=== PATIENT | female | born 1930 | race Caucasian/White ===

== ENCOUNTER 2017-02-26 10:00 | Outpatient (RCR) | payer MEDICARE, OTHER ==
[~2017-02-26 10:00] MED LIST: ASA81 MG PO; BENTYL10 MG PO; ESTRACE42.5 GM TOP; FLAX OIL1000 MG PO; MULTI-DAY VITA1 EACH PO; MULTI-VITAMIN1 EACH PO; MYRBETRIQ50 MG PO; NITROFURANTOIN100 MG PO; OYSTER SHELL C1 EACH PO; SOTALOL80 MG PO; ULTRACET TABLE1 EACH PO; Z.0.CALCIUM600 MG PO; Z.0.LOPRESSOR25 MG PO; [UNRECOGNIZED DRUG - OTHER] PO; eliquis PO
== END 2017-03-25 ==
LOC: PT 10:00
PROVIDERS: ATTEND Internal Medicine
DX: M62.81 Muscle weakness (generalized) (principal)

== ENCOUNTER 2017-04-06 14:29 | Emergency (ER) | payer MEDICARE, OTHER ==
[~2017-04-06] VITALS: Ht 160 cm; Wt 38.6 kg
[2017-04-06] MEDS ORDERED: LIDOCAINE HCL 2% 100 MG/5 ML IV ONE (15:13)
--- NOTE | 2017-04-06 15:25 | Diagnostic Imaging Report ---
Examination: CT BRAIN WITHOUT CONTRAST History:Fall. Head injury. Comparison studies:Head CT performed June 11, 2013 Technique: Axial images were obtained from the skull base to the vertex. Coronal and sagittal images reconstructed from the axial data. Intravenous contrast: None Findings: Scalp: Small right parietal scalp hematoma. Bones: No fractures, blastic or lytic lesions. Brain sulci: Appropriate for age. Ventricles: Normal in size and configuration. No hydrocephalus. Extra-axial space: There is hemorrhage in the prepontine and premedullary cisterns. In the left frontoparietal convexity, there is a 2 mm acute subdural hematoma. No associated midline shift, herniation or regional mass effect. Parenchyma: There is a parenchymal hematoma in the posterior aspect of the inferior right temporal gyrus, measuring 0.7 x 1.7 x 0.9 cm (superoinferior x anteroposterior x transverse dimensions). No associated midline shift or herniation. There is a new cortical-based area of encephalomalacia involving the right middle and inferior frontal gyri from prior vascular insult. There are mild patchy areas of hypoattenuation in the periventricular and subcortical white matter, nonspecific. No masses or acute cortical based vascular insults. Sellar/suprasellar region: No abnormalities. Craniocervical junction: Patent foramen magnum. No Chiari one malformation. Incidental findings: Atherosclerotic calcification of the cavernous and supraclinoid internal carotid and V4 segments of the bilateral vertebral arteries. Impression: 1. Several new areas of posttraumatic hemorrhage in this patient on anticoagulation, when compared to prior examination performed June 01, 2013 and which includes left temporal parenchymal contusion, left frontoparietal convexity subdural hematoma, and prepontine and premedullary cisterns subarachnoid hemorrhage. 2. No associated midline shift or herniation. 3. New small right parietal scalp hematoma. 4. 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 Acute findings discussed with Dr. Levi on 04/06/2017 at 1517 hours. Signed by: Dr. Sierra Leyva M.D. on 04/06/2017 3:21 PM
--- NOTE | 2017-04-06 15:28 | Diagnostic Imaging Report ---
Examination: CT CERVICAL SPINE WITHOUT CONTRAST HISTORY:Fall. Neck pain. COMPARISON:None. TECHNIQUE: Multidetector helical axial images were obtained without contrast from the foramen magnum to T1. Coronal and sagittal reformatted images were done. Bone and soft tissue windows were evaluated. FINDINGS: Alignment:Normal alignment and lordosis. Vertebrae: Normal height and density. No acute fracture, infection or neoplasm. Disc space heights: Normal height. Caliber of spinal canal: Developmentally normal. Posterior fossa and craniocervical junction: Foramen magnum patent. No Chiari 1 malformation. Soft tissues: Atherosclerotic calcification of the bilateral common carotid arteries. Degenerative changes: Mild bilateral facet arthropathy at C2-C3 with mild right foraminal narrowing. No left foraminal or canal stenosis. Moderate bilateral facet and mild bilateral uncovertebral arthropathy at C3-C4 result in moderate right neural foraminal narrowing. No left foraminal or canal stenosis. Diffuse disc osteophyte complex at C5-C6 and bilateral uncovertebral arthropathy result in severe bilateral neural foraminal narrowing. No canal stenosis. The remainder of the cervical levels demonstrate no disc bulge/ herniation or foraminal or canal stenosis. IMPRESSION: 1. No acute abnormalities. 2. Degenerative changes, as described above. Signed by: Dr. Sierra Leyva M.D. on 04/06/2017 3:24 PM
[2017-04-06] MEDS ORDERED: NICARDIPINE 20MG/200ML PREMIX 200 ML ONE (15:31)
[2017-04-06] MEDS ORDERED: CEFAZOLIN SOD 1 GM VIAL ONE (15:37)
[2017-04-06] MEDS ORDERED: MIDAZOLAM HCL IV PRN (15:45)
[2017-04-06] MEDS ORDERED: DEXTROSE 5% IV PRN (15:45)
[2017-04-06] MEDS ORDERED: MIDAZOLAM HCL 25 MG in SODIUM CHLORIDE 0.9% 45 ML IV PRN (15:45)
[2017-04-06] MEDS ORDERED: SODIUM CHLORIDE 0.9% 1000ML 1,000 ML ONE (15:46)
[2017-04-06 15:47] LABS: BASOPHILS # (AUTO) 0.1 (0.0-0.1); BASOPHILS % 0.5 % (0.0-1.0); EOSINOPHILS # (AUTO) 0.1 (0.0-0.4); EOSINOPHILS % 1.1 % (0.0-6.0); HEMOGLOBIN 14.1 g/dL (12.0-16.0); LYMPHOCYTES # (AUTO) 2.3 (1.0-3.2); LYMPHOCYTES % 20.6 % (18.0-39.1); MEAN CORPUSCULAR HEMOGLOBIN 33.4 pg (28-32); MEAN CORPUSCULAR HGB CONC 33.6 g/dL (31-35); MEAN CORPUSCULAR VOLUME 99.5 fL (81-99); MONOCYTES # (AUTO) 0.7 (0.2-0.8); MONOCYTES % 6.5 % (4.4-11.3); NEUTROPHILS # (AUTO) 7.7 (2.1-6.9); PLATELET COUNT 249 x10e3/uL (140-360); RED BLOOD COUNT 4.22 x10e6/uL (3.6-5.1); RED CELL DISTRIBUTION WIDTH 13.6 % (11.7-14.4)
[2017-04-06 15:58] LABS: INR 0.93; PROTHROMBIN TIME 12.9 seconds (11.9-14.5)
[2017-04-06 15:59] LABS: PARTIAL THROMBOPLASTIN TIME 22.9 seconds (23.8-35.5)
[2017-04-06] MEDS ORDERED: LEVETIRACETAM 500MG/5ML VIAL 1,000 MG in SODIUM CHLORIDE 0.9% 100 ML 100 ML IV SCH (16:00)
[2017-04-06 16:06] LABS: ALANINE AMINOTRANSFERASE 21 IU/L (0-55); ALBUMIN 3.9 g/dL (3.5-5.0); ALBUMIN/GLOBULIN RATIO 0.9 (0.8-2.0); ALKALINE PHOSPHATASE 81 IU/L (40-150); ANION GAP 15.9 mmol/L (8-16); BLOOD UREA NITROGEN 10 mg/dL (7-26); BUN/CREATININE RATIO 15 (6-25); CALCIUM 9.9 mg/dL (8.4-10.2); CARBON DIOXIDE 25 mmol/L (22-29); CHLORIDE 105 mmol/L (98-107); CREATINE KINASE 88 IU/L (29-168); CREATININE, SERUM 0.67 mg/dL (0.57-1.11); EST GLOMERULAR FILTRATION RATE > 60 ML/MIN (60-); GLUCOSE 133 mg/dL (74-118); POTASSIUM 3.9 mmol/L (3.5-5.1); SODIUM 142 mmol/L (136-145)
[2017-04-06 16:12] LABS: TROPONIN I 0.605 ng/mL (0-0.300)
[2017-04-06] MEDS ORDERED: ETOMIDATE 2 MG/ML 10 ML INJ IV STA (17:42)
[2017-04-06] MEDS ORDERED: LIDOCAINE 1% 5ML-MPF INJ ONE (17:45)
[2017-04-06] MEDS ORDERED: MIDAZOLAM HCL 2 MG/2 ML VIAL IV ONE (18:00)
[2017-04-06] MEDS ORDERED: VECURONIUM BROMIDE FOR INJ 20 MG VIAL ONE (18:25)
[2017-04-06] MEDS ORDERED: ETOMIDATE 2 MG/ML 10 ML INJ IV ONE (18:25)
== END 2017-04-06 17:50 | disposition short-term general hospital (02) ==
LOC: ER 14:29
DX: S06.5X0A Traumatic subdural hemorrhage without loss of consciousness, initial encounter (principal); S01.01XA Laceration without foreign body of scalp, initial encounter; S09.8XXA Other specified injuries of head, initial encounter; W01.198A Fall on same level from slipping, tripping and stumbling with subsequent striking against other object, initial encounter; Y92.488 Other paved roadways as the place of occurrence of the external cause; I48.91 Unspecified atrial fibrillation
CPT/HCPCS: 31500; 36415; 70450; 72125; 80053; 82550; 82553; 84484; 85025; 85610; 85730; 94002; 99285; J0690; J2001; J2250; J7030

== ENCOUNTER → 2017-04-24 | Outpatient (CLI) | payer OTHER ==
[2017-04-24 15:48] LABS: BASOPHILS # (AUTO) 0.1 (0.0-0.1); BASOPHILS % 0.7 % (0.0-1.0); EOSINOPHILS # (AUTO) 0.4 (0.0-0.4); EOSINOPHILS % 4.9 % (0.0-6.0); HEMATOCRIT 32.5 % (34.2-44.1); HEMOGLOBIN 10.2 g/dL (12.0-16.0); LYMPHOCYTES # (AUTO) 1.9 (1.0-3.2); LYMPHOCYTES % 25.3 % (18.0-39.1); MEAN CORPUSCULAR HGB CONC 31.4 g/dL (31-35); MEAN CORPUSCULAR VOLUME 95.6 fL (81-99); MONOCYTES # (AUTO) 0.5 (0.2-0.8); MONOCYTES % 6.7 % (4.4-11.3); NEUTROPHILS # (AUTO) 4.7 (2.1-6.9); NEUTROPHILS % 61.5 % (38.7-80.0); PLATELET COUNT 371 x10e3/uL (140-360); RED CELL DISTRIBUTION WIDTH 13.7 % (11.7-14.4)
== END ==
LOC: NPA 11:30
DX: Z02.9 Encounter for administrative examinations, unspecified (principal)
CPT/HCPCS: 36415; 85025

== ENCOUNTER → 2017-05-14 | Outpatient (CLI) | payer OTHER ==
[~2017-05-14] MED LIST changes: +ASPIR 8181 MG PO
[2017-05-14 18:14] LABS: BASOPHILS % 0.3 % (0.0-1.0); EOSINOPHILS # (AUTO) 0.2 (0.0-0.4); EOSINOPHILS % 1.2 % (0.0-6.0); HEMATOCRIT 32.7 % (34.2-44.1); HEMOGLOBIN 10.3 g/dL (12.0-16.0); LYMPHOCYTES # (AUTO) 1.9 (1.0-3.2); LYMPHOCYTES % 14.8 % (18.0-39.1); MEAN CORPUSCULAR HEMOGLOBIN 27.1 pg (28-32); MEAN CORPUSCULAR HGB CONC 31.5 g/dL (31-35); MEAN CORPUSCULAR VOLUME 86.1 fL (81-99); MONOCYTES # (AUTO) 0.9 (0.2-0.8); MONOCYTES % 7.2 % (4.4-11.3); NEUTROPHILS # (AUTO) 9.6 (2.1-6.9); PLATELET COUNT 425 x10e3/uL (140-360); RED CELL DISTRIBUTION WIDTH 16.5 % (11.7-14.4)
[2017-05-14 18:16] LABS: ANION GAP 18.7 mmol/L (8-16); CALCIUM 11.1 mg/dL (8.4-10.2); CREATININE, SERUM 1.09 mg/dL (0.57-1.11); POTASSIUM 4.7 mmol/L (3.5-5.1)
== END ==
LOC: NPA 12:00
DX: Z02.89 Encounter for other administrative examinations (principal)
CPT/HCPCS: 36415; 80048; 85025

== ENCOUNTER 2017-05-20 16:29 | Inpatient (IN) | payer MEDICARE, OTHER ==
[~2017-05-20] VITALS: Ht 160 cm; Wt 33.1 kg
[~2017-05-20 16:29] MED LIST changes: -ASPIR 8181 MG PO
--- OUTSIDE RECORDS SUMMARY | 2017-05-20 16:33 | XMS REPORT ---
Author Author [facility] Address Unknown Phone Unavailable Care Team Providers Care Urology Surgeon Name Role Phone FABIO PEREZ Unavailable Unavailable Problems This patient has no known problems. Allergies, Adverse Reactions, Alerts This patient has no known allergies or adverse reactions. Medications This patient has no known medications. Results Test Description Test Time Test Comments Text Results Atomic Results Result Comments CT BRAIN WO [place] [address] Patient Name: LEVI BERNAL MR #: [id number] : 1930 Age/Sex: 86/F Req # : [id number] Adm Physician: Ordered by: FABIO PEREZ MD Report #: [id number] Location: ER Room/Bed: Procedure: [id number] CT/CT BRAIN WO Exam Date: Exam Time: REPORT STATUS: Signed Examination: CT BRAIN WITHOUT CONTRAST History: Fall. Head injury. Comparison studies:Head CT performed June 11, 2013 Technique: Axial images were obtained from the skull base to the vertex. Coronal and sagittal images reconstructed from the axial data. Intravenous contrast: None Findings: Scalp: Small right parietal scalp hematoma. Bones: No fractures, blastic or lytic lesions. Brain sulci: Appropriate for age. Ventricles: Normal in size and configuration. No hydrocephalus. Extra-axial space: There is hemorrhage in the prepontine and premedullary cisterns. In the left frontoparietal convexity, there is a 2 mm acute subdural hematoma. No associated midline shift, herniation or regional mass effect. Parenchyma: There is a parenchymal hematoma in the posterior aspect of the inferior right temporal gyrus, measuring 0.7 x 1.7 x 0.9 cm ( superoinferior x anteroposterior x transverse dimensions). No associated midline shift or herniation. There is a new cortical-based area of encephalomalacia involving the right middle and inferior frontal gyri from prior vascular insult. There are mild patchy areas of hypoattenuation in the periventricular and subcortical white matter, nonspecific. No masses or acute cortical based vascular insults. Sellar/suprasellar region: No abnormalities. Craniocervical junction: Patent foramen magnum. No Chiari one malformation. Incidental findings: Atherosclerotic calcification of the cavernous and supraclinoid internal carotid and V4 segments of the bilateral vertebral arteries. Impression: 1. Several new areas of posttraumatic hemorrhage in this patient on anticoagulation, when compared to prior examination performed June 01, 2013 and which includes left temporal parenchymal contusion, left frontoparietal convexity subdural hematoma, and prepontine and premedullary cisterns subarachnoid hemorrhage. 2. No associated midline shift or herniation. 3. New small right parietal scalp hematoma. 4. 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 Acute findings discussed with Dr. Perez on 04/06/2017 at 1517 hours. Signed by: Dr. Sierra Leyva M.D. on 04/06/2017 3:21 PM Dictated By: SIERRA HOLLIS MD 1521 Transcribed By: MAGY on 04/06/17 1521 COPY TO: FABIO PEREZ MD CT CERVICAL SPINE WO [place] [address] Patient Name: LEVI BERNAL MR #: [id number] : 1930 Age/Sex: 86/F Req #: [id number] Adm Physician: Ordered by: FABIO PEREZ MD Report #: [id number] Location: ER Room/Bed: Procedure: [id number] CT/CT CERVICAL SPINE WO Exam Date: Exam Time: REPORT STATUS: Signed Examination: CT CERVICAL SPINE WITHOUT CONTRAST HISTORY:Fall. Neck pain. COMPARISON:None. TECHNIQUE: Multidetector helical axial images were obtained without contrast from the foramen magnum to T1. Coronal and sagittal reformatted images were done. Bone and soft tissue windows were evaluated. FINDINGS: Alignment: Normal alignment and lordosis. Vertebrae: Normal height and density. No acute fracture, infection or neoplasm. Disc space heights: Normal height. Caliber of spinal canal: Developmentally normal. Posterior fossa and craniocervical junction: Foramen magnum patent. No Chiari 1 malformation. Soft tissues: Atherosclerotic calcification of the bilateral common carotid arteries. Degenerative changes: Mild bilateral facet arthropathy at C2- C3 with mild right foraminal narrowing. No left foraminal or canal stenosis. Moderate bilateral facet and mild bilateral uncovertebral arthropathy at C3- C4 result in moderate right neural foraminal narrowing. No left foraminal or canal stenosis. Diffuse disc osteophyte complex at C5-C6 and bilateral uncovertebral arthropathy result in severe bilateral neural foraminal narrowing. No canal stenosis. The remainder of the cervical levels demonstrate no disc bulge/ herniation or foraminal or canal stenosis. IMPRESSION: 1. No acute abnormalities. 2. Degenerative changes, as described above. Signed by: Dr. Sierra Leyav M.D. on 04/06/2017 3:24 PM Dictated By: SIERRA HOLLIS MD 1524 Transcribed By: MAGY on 1524 COPY TO: FABIO PEREZ MD
[2017-05-20] MEDS ORDERED: ACETAMINOPHEN 1000 MG/100 ML IV STA (16:35)
[2017-05-20] MEDS ORDERED: SODIUM CHLORIDE 0.9% 1000ML 1,000 ML IV STA (16:42)
--- NOTE | 2017-05-20 17:18 | Diagnostic Imaging Report ---
EXAMINATION: CHEST SINGLE (PORTABLE) 05/20/2017 4:33 PM COMPARISON: 02/06/2015 INDICATION: Weakness, lethargic DISCUSSION: LINES: None. LUNGS: The lungs are hyperexpanded. Calcified granuloma in the right upper lung is unchanged. Questionable airspace opacities in the right lung base PLEURA: No pleural effusion or pneumothorax. HEART AND MEDIASTINUM: Normal heart size. Calcifications of the thoracic aorta. BONES AND SOFT TISSUES: No acute osseous lesion. The soft tissues are normal. IMPRESSION: Questionable airspace opacities in the right lung base. Recommend dedicated PA and lateral chest radiographs for further evaluation. Guillermo Ortiz MD Signed by: Dr. Guillermo Ortiz M.D. on 05/20/2017 5:15 PM
[2017-05-20 17:41] LABS: BASOPHILS % 0.2 % (0.0-1.0); HEMATOCRIT 36.8 % (34.2-44.1); HEMOGLOBIN 12.5 g/dL (12.0-16.0); LYMPHOCYTES % 4.4 % (18.0-39.1); MEAN CORPUSCULAR HEMOGLOBIN 31.7 pg (28-32); MEAN CORPUSCULAR VOLUME 93.4 fL (81-99); MONOCYTES % 4.4 % (4.4-11.3); PLATELET COUNT 402 x10e3/uL (140-360); RED BLOOD COUNT 3.94 x10e6/uL (3.6-5.1); RED CELL DISTRIBUTION WIDTH 13.1 % (11.7-14.4)
[2017-05-20 17:46] LABS: INR 1.17
[2017-05-20 17:47] LABS: PARTIAL THROMBOPLASTIN TIME 28.2 seconds (23.8-35.5)
[2017-05-20] MEDS ORDERED: IPRATROPIUM BROMIDE 0.02% 2.5 ML NEB NEB STA (17:53)
[2017-05-20] MEDS ORDERED: CEFTRIAXONE SOD 1 GM VIAL IV STA (17:53)
[2017-05-20 17:57] LABS: ALANINE AMINOTRANSFERASE 11 IU/L (0-55); ALBUMIN 3.1 g/dL (3.5-5.0); ALBUMIN/GLOBULIN RATIO 0.7 (0.8-2.0); ALKALINE PHOSPHATASE 74 IU/L (40-150); BLOOD UREA NITROGEN 10 mg/dL (7-26); BUN/CREATININE RATIO 15 (6-25); CARBON DIOXIDE 24 mmol/L (22-29); CHLORIDE 99 mmol/L (98-107); CREATINE KINASE 9 IU/L (29-168); CREATININE, SERUM 0.66 mg/dL (0.57-1.11); EST GLOMERULAR FILTRATION RATE > 60 ML/MIN (60-); GLUCOSE 111 mg/dL (74-118); SODIUM 137 mmol/L (136-145)
[2017-05-20 17:59] LABS: CALCIUM 9.2 mg/dL (8.4-10.2)
[2017-05-20] MEDS ORDERED: AZITHROMYCIN 500MG/SOD CHL 0.9% 250ML BAG IV SCH (18:00)
[2017-05-20] MEDS: AZITHROMYCIN 500MG/NS 250 ML 250 ML IV SCH (18:12)
[2017-05-20] MEDS ORDERED: ALBUTEROL SULF 0.083% NEB SOLN 3 ML NEB NEB ONE (18:30)
[2017-05-20] MEDS: SODIUM CHLORIDE 0.9% 1000ML 1,000 ML IV SCH (18:51)
[2017-05-20] MEDS: IPRATROPIUM BROMIDE 0.02% 2.5 ML NEB NEB SCH ×2 (18:59→23:30)
[2017-05-20] MEDS: ALBUTEROL SULF 0.083% NEB SOLN 3 ML NEB NEB SCH ×2 (18:59→23:30)
[2017-05-20] MEDS ORDERED: POTASSIUM CHLORIDE 20MEQ/15ML UDC PO ONE (20:00)
[2017-05-20] MEDS ORDERED: SOTALOL80 MG PO (20:03)
[2017-05-20] MEDS ORDERED: MYRBETRIQ50 MG PO (20:03)
[2017-05-20] MEDS ORDERED: ASPIR 8181 MG PO (20:04)
[2017-05-20 20:30] VITALS: BP 101/54
[2017-05-21 01:06] VITALS: BP 140/67
[2017-05-21 02:07] LABS: CREATINE KINASE MB 0.4 ng/mL (0-5.0)
[2017-05-21] MEDS: ALBUTEROL SULF 0.083% NEB SOLN 3 ML NEB NEB SCH ×5 (03:00→20:15)
[2017-05-21] MEDS: SODIUM CHLORIDE 0.9% 1000ML 1,000 ML IV SCH ×2 (03:33→14:55)
[2017-05-21 05:42] VITALS: BP 147/91
[2017-05-21] MEDS: CEFTRIAXONE SOD 1 GM VIAL IV SCH (06:04)
[2017-05-21] MEDS: IPRATROPIUM BROMIDE 0.02% 2.5 ML NEB NEB SCH ×3 (07:29→20:15)
[2017-05-21 08:00] VITALS: BP 150/68
[2017-05-21] MEDS: MULTIVITAMINS/MINERALS TAB PO SCH (08:39)
[2017-05-21] MEDS: OYST-CAL-D 500MG TABLET PO SCH (08:39)
[2017-05-21] MEDS: SOTALOL HCL 80 MG TAB PO SCH ×2 (08:39→17:22)
[2017-05-21] MEDS: ASPIRIN 81 MG CHEW TAB PO SCH (08:39)
[2017-05-21 10:44] LABS: CREATINE KINASE MB 0.4 ng/mL (0-5.0)
[2017-05-21 16:00] VITALS: BP 106/59
[2017-05-21] MEDS: AZITHROMYCIN 500MG/NS 250 ML 250 ML IV SCH (17:22)
[2017-05-21 18:12] LABS: BILIRUBIN,URINE NEGATIVE (NEGATIVE); CLARITY,URINE SL CLOUDY (CLEAR); COLOR,URINE YELLOW (YELLOW); KETONES,URINE 1+ (NEGATIVE); LEUKOCYTE ESTERASE ,URINE TRACE (NEGATIVE); NITRITE,URINE NEGATIVE (NEGATIVE); PROTEIN,URINE DIPSTICK 1+ (NEGATIVE); URINE UROBILINOGEN 0.2 mg/dL (0.2 - 1)
[2017-05-21 18:17] LABS: BACTERIA,URINE RARE /HPF; EPITHELIAL CELLS,URINE RARE /LPF; MUCUS,URINE FEW (RARE); RBC,URINE 0-5 /HPF (0-5)
[2017-05-21 20:00] VITALS: BP 134/70
[2017-05-21] MEDS: NITROFURANTOIN MACROCRYSTALS 100 MG CAP PO SCH (22:14)
[2017-05-22] VITALS: BP 153/81
[2017-05-22] MEDS: IPRATROPIUM BROMIDE 0.02% 2.5 ML NEB NEB SCH ×4 (00:30→20:15)
[2017-05-22] MEDS: ALBUTEROL SULF 0.083% NEB SOLN 3 ML NEB NEB SCH ×6 (00:30→20:15)
[2017-05-22 04:00] VITALS: BP 138/63
[2017-05-22] MEDS: SODIUM CHLORIDE 0.9% 1000ML 1,000 ML IV SCH (04:09)
[2017-05-22] MEDS: CEFTRIAXONE SOD 1 GM VIAL IV SCH (05:24)
[2017-05-22 07:15] LABS: ALANINE AMINOTRANSFERASE 11 IU/L (0-55); ALBUMIN 2.4 g/dL (3.5-5.0); ALBUMIN/GLOBULIN RATIO 0.7 (0.8-2.0); ALKALINE PHOSPHATASE 73 IU/L (40-150); ANION GAP 11.1 mmol/L (8-16); BLOOD UREA NITROGEN 8 mg/dL (7-26); BUN/CREATININE RATIO 17 (6-25); CALCIUM 8.1 mg/dL (8.4-10.2); CARBON DIOXIDE 21 mmol/L (22-29); CHLORIDE 105 mmol/L (98-107); CREATININE, SERUM 0.46 mg/dL (0.57-1.11); EST GLOMERULAR FILTRATION RATE > 60 ML/MIN (60-); GLUCOSE 90 mg/dL (74-118); POTASSIUM 3.1 mmol/L (3.5-5.1); SODIUM 134 mmol/L (136-145)
[2017-05-22 07:30] LABS: MAGNESIUM 1.2 MG/DL (1.3-2.1)
[2017-05-22 08:00] VITALS: BP 169/81
[2017-05-22] MEDS: MEGACE 400MG/ 10ML CUP PO SCH (09:00)
[2017-05-22] MEDS: MULTIVITAMINS/MINERALS TAB PO SCH (09:00)
[2017-05-22] MEDS: ASPIRIN 81 MG CHEW TAB PO SCH (09:00)
[2017-05-22] MEDS: CITALOPRAM HYDROBROMIDE 20 MG TAB PO SCH (09:00)
[2017-05-22] MEDS: OYST-CAL-D 500MG TABLET PO SCH (09:00)
[2017-05-22] MEDS: SOTALOL HCL 80 MG TAB PO SCH ×2 (09:25→16:46)
[2017-05-22 12:00] VITALS: BP 153/86
[2017-05-22 16:00] VITALS: BP 175/89
[2017-05-22] MEDS: AZITHROMYCIN 500MG/NS 250 ML 250 ML IV SCH (17:40)
[2017-05-22 20:00] VITALS: BP 137/97
[2017-05-22] MEDS: NITROFURANTOIN MACROCRYSTALS 100 MG CAP PO SCH (20:32)
[2017-05-23] MEDS: ALBUTEROL SULF 0.083% NEB SOLN 3 ML NEB NEB SCH ×7 (01:00→23:00)
[2017-05-23] MEDS: IPRATROPIUM BROMIDE 0.02% 2.5 ML NEB NEB SCH ×4 (01:00→19:24)
[2017-05-23 04:00] VITALS: BP 167/84
[2017-05-23] MEDS: CEFTRIAXONE SOD 1 GM VIAL IV SCH (05:11)
[2017-05-23] MEDS ORDERED: POTASSIUM CHLORIDE 10 MEQ TABCR PO ONE (05:30)
[2017-05-23] MEDS ORDERED: MAGNESIUM SULFATE 2GM/50ML 50 ML IV ONE (05:30)
[2017-05-23] MEDS: SODIUM CHLORIDE 0.9% 1000ML 1,000 ML IV SCH ×2 (05:38→08:45)
[2017-05-23 07:14] LABS: BASOPHILS % 0.3 % (0.0-1.0); EOSINOPHILS # (AUTO) 0.3 (0.0-0.4); EOSINOPHILS % 2.8 % (0.0-6.0); HEMATOCRIT 32.7 % (34.2-44.1); HEMOGLOBIN 10.8 g/dL (12.0-16.0); LYMPHOCYTES # (AUTO) 1.2 (1.0-3.2); LYMPHOCYTES % 10.4 % (18.0-39.1); MEAN CORPUSCULAR HEMOGLOBIN 31.3 pg (28-32); MEAN CORPUSCULAR VOLUME 94.8 fL (81-99); MONOCYTES # (AUTO) 0.6 (0.2-0.8); MONOCYTES % 5.4 % (4.4-11.3); NEUTROPHILS # (AUTO) 9.3 (2.1-6.9); NEUTROPHILS % 80.6 % (38.7-80.0); PLATELET COUNT 355 x10e3/uL (140-360); RED BLOOD COUNT 3.45 x10e6/uL (3.6-5.1)
[2017-05-23 08:00] VITALS: BP 167/84
[2017-05-23] MEDS: MULTIVITAMINS/MINERALS TAB PO SCH (09:00)
[2017-05-23] MEDS: OYST-CAL-D 500MG TABLET PO SCH (09:00)
[2017-05-23] MEDS: CITALOPRAM HYDROBROMIDE 20 MG TAB PO SCH (09:00)
[2017-05-23] MEDS: MEGACE 400MG/ 10ML CUP PO SCH (09:00)
[2017-05-23] MEDS: ASPIRIN 81 MG CHEW TAB PO SCH (09:00)
[2017-05-23] MEDS: SOTALOL HCL 80 MG TAB PO SCH ×2 (09:00→16:51)
[2017-05-23 09:52] VITALS: BP 164/83
[2017-05-23] MEDS: AZITHROMYCIN 500MG/NS 250 ML 250 ML IV SCH (17:32)
[2017-05-23 17:49] VITALS: BP 142/66
[2017-05-23 20:00] VITALS: BP 113/67
[2017-05-23 21:10] VITALS: BP 113/67
[2017-05-23] MEDS: NITROFURANTOIN MACROCRYSTALS 100 MG CAP PO SCH (22:45)
[2017-05-24] VITALS (8 sets, daily range): BP systolic 133–146; BP diastolic 63–74
[2017-05-24] MEDS: IPRATROPIUM BROMIDE 0.02% 2.5 ML NEB NEB SCH ×4 (02:44→19:42)
[2017-05-24] MEDS: ALBUTEROL SULF 0.083% NEB SOLN 3 ML NEB NEB SCH ×5 (02:44→19:42)
[2017-05-24] MEDS: SODIUM CHLORIDE 0.9% 1000ML 1,000 ML IV SCH ×2 (04:10→13:21)
[2017-05-24] MEDS: CEFTRIAXONE SOD 1 GM VIAL IV SCH (04:10)
[2017-05-24] MEDS: MULTIVITAMINS/MINERALS TAB PO SCH (09:00)
[2017-05-24] MEDS: ASPIRIN 81 MG CHEW TAB PO SCH (09:00)
[2017-05-24] MEDS: OYST-CAL-D 500MG TABLET PO SCH (09:00)
[2017-05-24] MEDS: SOTALOL HCL 80 MG TAB PO SCH ×2 (09:00→17:00)
[2017-05-24] MEDS: CITALOPRAM HYDROBROMIDE 20 MG TAB PO SCH (09:00)
[2017-05-24] MEDS: MEGACE 400MG/ 10ML CUP PO SCH (09:00)
[2017-05-24] MEDS: AZITHROMYCIN 500MG/NS 250 ML 250 ML IV SCH (18:00)
[2017-05-24] MEDS: NITROFURANTOIN MACROCRYSTALS 100 MG CAP PO SCH (22:30)
[2017-05-25] VITALS (7 sets, daily range): BP systolic 131–191; BP diastolic 60–88
[2017-05-25] MEDS: ALBUTEROL SULF 0.083% NEB SOLN 3 ML NEB NEB SCH ×5 (00:05→19:45)
[2017-05-25] MEDS: IPRATROPIUM BROMIDE 0.02% 2.5 ML NEB NEB SCH ×4 (00:05→19:45)
[2017-05-25] MEDS: SODIUM CHLORIDE 0.9% 1000ML 1,000 ML IV SCH ×2 (02:38→17:57)
[2017-05-25] MEDS: CEFTRIAXONE SOD 1 GM VIAL IV SCH (06:17)
[2017-05-25 06:21] LABS: BASOPHILS % 0.3 % (0.0-1.0); EOSINOPHILS # (AUTO) 0.2 (0.0-0.4); EOSINOPHILS % 3.3 % (0.0-6.0); HEMATOCRIT 31.8 % (34.2-44.1); HEMOGLOBIN 10.4 g/dL (12.0-16.0); LYMPHOCYTES # (AUTO) 1.6 (1.0-3.2); LYMPHOCYTES % 22.4 % (18.0-39.1); MEAN CORPUSCULAR HEMOGLOBIN 30.8 pg (28-32); MEAN CORPUSCULAR HGB CONC 32.7 g/dL (31-35); MEAN CORPUSCULAR VOLUME 94.1 fL (81-99); MONOCYTES # (AUTO) 0.7 (0.2-0.8); MONOCYTES % 9.7 % (4.4-11.3); NEUTROPHILS # (AUTO) 4.6 (2.1-6.9); NEUTROPHILS % 63.7 % (38.7-80.0); PLATELET COUNT 312 x10e3/uL (140-360); RED BLOOD COUNT 3.38 x10e6/uL (3.6-5.1); RED CELL DISTRIBUTION WIDTH 13.1 % (11.7-14.4)
[2017-05-25 06:50] LABS: ALANINE AMINOTRANSFERASE 10 IU/L (0-55); ALBUMIN 2.2 g/dL (3.5-5.0); ALBUMIN/GLOBULIN RATIO 0.6 (0.8-2.0); ALKALINE PHOSPHATASE 63 IU/L (40-150); ANION GAP 9.7 mmol/L (8-16); BLOOD UREA NITROGEN 7 mg/dL (7-26); BUN/CREATININE RATIO 15 (6-25); CALCIUM 8.4 mg/dL (8.4-10.2); CARBON DIOXIDE 22 mmol/L (22-29); CHLORIDE 109 mmol/L (98-107); CREATININE, SERUM 0.47 mg/dL (0.57-1.11); EST GLOMERULAR FILTRATION RATE > 60 ML/MIN (60-); GLUCOSE 86 mg/dL (74-118); MAGNESIUM 1.4 MG/DL (1.3-2.1); POTASSIUM 3.7 mmol/L (3.5-5.1); SODIUM 137 mmol/L (136-145)
[2017-05-25] MEDS: SOTALOL HCL 80 MG TAB PO SCH ×2 (09:00→16:50)
[2017-05-25] MEDS: CITALOPRAM HYDROBROMIDE 20 MG TAB PO SCH (09:00)
[2017-05-25] MEDS: MULTIVITAMINS/MINERALS TAB PO SCH (09:00)
[2017-05-25] MEDS: MEGACE 400MG/ 10ML CUP PO SCH (09:00)
[2017-05-25] MEDS: OYST-CAL-D 500MG TABLET PO SCH (09:00)
[2017-05-25] MEDS: ASPIRIN 81 MG CHEW TAB PO SCH (09:00)
[2017-05-25] MEDS: AZITHROMYCIN 500MG/NS 250 ML 250 ML IV SCH (17:30)
[2017-05-25] MEDS: NITROFURANTOIN MACROCRYSTALS 100 MG CAP PO SCH (20:19)
[2017-05-26] VITALS: BP 165/80
[2017-05-26] MEDS: IPRATROPIUM BROMIDE 0.02% 2.5 ML NEB NEB SCH ×4 (00:20→19:40)
[2017-05-26] MEDS: ALBUTEROL SULF 0.083% NEB SOLN 3 ML NEB NEB SCH ×6 (00:20→19:40)
[2017-05-26 04:00] VITALS: BP 170/81
[2017-05-26] MEDS: CEFTRIAXONE SOD 1 GM VIAL IV SCH (05:32)
[2017-05-26 08:00] VITALS: BP 184/80
[2017-05-26] MEDS: SODIUM CHLORIDE 0.9% 1000ML 1,000 ML IV SCH ×2 (08:15→20:34)
[2017-05-26] MEDS: MEGACE 400MG/ 10ML CUP PO SCH (09:00)
[2017-05-26] MEDS: CITALOPRAM HYDROBROMIDE 20 MG TAB PO SCH (09:00)
[2017-05-26] MEDS: OYST-CAL-D 500MG TABLET PO SCH (09:00)
[2017-05-26] MEDS: ASPIRIN 81 MG CHEW TAB PO SCH (09:00)
[2017-05-26] MEDS: SOTALOL HCL 80 MG TAB PO SCH ×2 (09:00→17:07)
[2017-05-26] MEDS: MULTIVITAMINS/MINERALS TAB PO SCH (09:00)
[2017-05-26 12:00] VITALS: BP 156/73
[2017-05-26 16:00] VITALS: BP 132/69
[2017-05-26] MEDS: AZITHROMYCIN 500MG/NS 250 ML 250 ML IV SCH (17:07)
[2017-05-26 20:00] VITALS: BP 138/67
[2017-05-26] MEDS: NITROFURANTOIN MACROCRYSTALS 100 MG CAP PO SCH (20:34)
[2017-05-27] VITALS (7 sets, daily range): BP systolic 117–167; BP diastolic 58–80
[2017-05-27] MEDS: IPRATROPIUM BROMIDE 0.02% 2.5 ML NEB NEB SCH ×4 (00:05→19:58)
[2017-05-27] MEDS: ALBUTEROL SULF 0.083% NEB SOLN 3 ML NEB NEB SCH ×6 (00:05→19:58)
[2017-05-27] MEDS: CEFTRIAXONE SOD 1 GM VIAL IV SCH (05:02)
[2017-05-27] MEDS: OYST-CAL-D 500MG TABLET PO SCH (09:51)
[2017-05-27] MEDS: MEGACE 400MG/ 10ML CUP PO SCH (09:51)
[2017-05-27] MEDS: MULTIVITAMINS/MINERALS TAB PO SCH (09:51)
[2017-05-27] MEDS: CITALOPRAM HYDROBROMIDE 20 MG TAB PO SCH (09:51)
[2017-05-27] MEDS: ASPIRIN 81 MG CHEW TAB PO SCH (09:51)
[2017-05-27] MEDS: SOTALOL HCL 80 MG TAB PO SCH ×2 (09:51→17:08)
[2017-05-27] MEDS: SODIUM CHLORIDE 0.9% 1000ML 1,000 ML IV SCH (15:08)
[2017-05-27] MEDS: AZITHROMYCIN 500MG/NS 250 ML 250 ML IV SCH (17:29)
[2017-05-27] MEDS: NITROFURANTOIN MACROCRYSTALS 100 MG CAP PO SCH (20:46)
[2017-05-28] VITALS: BP 155/75
[2017-05-28] MEDS: ALBUTEROL SULF 0.083% NEB SOLN 3 ML NEB NEB SCH ×4 (00:05→11:00)
[2017-05-28] MEDS: IPRATROPIUM BROMIDE 0.02% 2.5 ML NEB NEB SCH ×2 (00:05→07:18)
[2017-05-28] MEDS: SODIUM CHLORIDE 0.9% 1000ML 1,000 ML IV SCH (03:09)
[2017-05-28 04:00] VITALS: BP 149/83
[2017-05-28] MEDS: CEFTRIAXONE SOD 1 GM VIAL IV SCH (06:00)
[2017-05-28 07:51] VITALS: BP 149/83
[2017-05-28 08:36] VITALS: BP 176/85
[2017-05-28] MEDS: ASPIRIN 81 MG CHEW TAB PO SCH (08:55)
[2017-05-28] MEDS: MEGACE 400MG/ 10ML CUP PO SCH (08:56)
[2017-05-28] MEDS: OYST-CAL-D 500MG TABLET PO SCH (08:56)
[2017-05-28] MEDS: SOTALOL HCL 80 MG TAB PO SCH (08:56)
[2017-05-28] MEDS: MULTIVITAMINS/MINERALS TAB PO SCH (08:56)
[2017-05-28] MEDS: CITALOPRAM HYDROBROMIDE 20 MG TAB PO SCH (08:56)
[2017-05-28 12:10] VITALS: BP 170/87
[2017-05-28 15:40] VITALS: BP 149/67
== END 2017-05-28 13:10 | DRG 193 ==
LOC: ER 16:34 → ERHOLD 18:01 → MED/SURG2 19:49
PROVIDERS: ADMIT Internal Medicine; ATTEND Internal Medicine
DX: J18.9 Pneumonia, unspecified organism (principal); E43 Unspecified severe protein-calorie malnutrition; F03.90 Unspecified dementia, unspecified severity, without behavioral disturbance, psychotic disturbance, mood disturbance, and anxiety; I48.91 Unspecified atrial fibrillation; D64.9 Anemia, unspecified; I10 Essential (primary) hypertension; Z79.01 Long term (current) use of anticoagulants
CPT/HCPCS: 36415; 71045; 80053; 81001; 82550; 82553; 83605; 83735; 84484; 85025; 85610; 85730; 87040; 87086; 87205; 87400; 93005; 94640; 94644; 99284; J0456; J0696; J7030